=== PATIENT | male | born 1985 ===

== ENCOUNTER 2019-03-23 08:49 | Day surgery (SDC) | payer OTHER ==
[~2019-03-23 08:49] MED LIST: Buffered Lidocaine 1% SYRIN* 1 ML/SYRINGE INTRADERM ONE; Famotidine IV* 10 MG/ML 2 ML (20 mg) IV ONE; Lactated Ringers 1000 ML Bag* 1,000 ML IV SCH
[2019-03-23] MEDS ORDERED: Famotidine IV* 10 MG/ML 2 ML (20 mg) ONE (08:51)
[2019-03-23] MEDS ORDERED: Bupivacaine 0.25% SDV* 30 ML ONE (09:04)
[2019-03-23 11:02] VITALS: BP 129/82
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
== END 2019-03-23 11:12 ==
LOC: OREAST 08:49
PROVIDERS: ATTEND Orthopaedic Surgery Hand Surgery
DX: M79.5 Residual foreign body in soft tissue (principal); I10 Essential (primary) hypertension; J45.909 Unspecified asthma, uncomplicated; F17.210 Nicotine dependence, cigarettes, uncomplicated; Z18.89 Other specified retained foreign body fragments
CPT/HCPCS: 88302; J3490